=== PATIENT | female | born 1965 | race Caucasian/White ===

== ENCOUNTER 2020-07-25 17:36 | Observation (INO) | payer BC, MEDICARE ==
[~2020-07-25] VITALS: Ht 170.2 cm; Wt 66.7 kg
[~2020-07-25 17:36] MED LIST: DOXYCYCLINE HY100 MG PO
[2020-07-25 18:35] LABS: HEMOGLOBIN 17.1 gm/dl (12.3-15.3); RED BLOOD COUNT 5.52 M/UL (4.00-5.10); WHITE BLOOD COUNT 7.5 K/UL (4.5-11.0)
[2020-07-25 18:59] LABS: BUN/CREATININE RATIO 10 (0-10)
[2020-07-25] MEDS ORDERED: NITROGLYCERIN0.4 MG SL (23:06)
[2020-07-25] MEDS ORDERED: NORTRIPTYLINE H25 MG PO (23:07)
[2020-07-25] MEDS ORDERED: VENTOLIN HFA 66.7 GM INH (23:07)
[2020-07-25] MEDS ORDERED: HYDROCODON-ACE1 EAC6 PO (23:07)
[2020-07-25] MEDS ORDERED: LEVOTHYROXINE137 MCG PO (23:08)
[2020-07-25] MEDS ORDERED: CLOPIDOGREL75 MG PO (23:08)
[2020-07-25] MEDS ORDERED: DURAGESIC1 EAC3 TD (23:09)
[2020-07-25] MEDS ORDERED: ASPIRIN325 MG PO (23:10)
[2020-07-26 04:51] LABS: HEMOGLOBIN 16.1 gm/dl (12.3-15.3); RED BLOOD COUNT 5.29 M/UL (4.00-5.10); WHITE BLOOD COUNT 5.8 K/UL (4.5-11.0)
[2020-07-26 05:19] LABS: BUN/CREATININE RATIO 13 (0-10)
[2020-07-26] MEDS ORDERED: CATAPRES 0.1MG0.1 MG PO (23:08)
[2020-07-27 07:34] LABS: HEMOGLOBIN 16.1 gm/dl (12.3-15.3); RED BLOOD COUNT 5.28 M/UL (4.00-5.10)
[2020-07-27 07:50] LABS: BUN/CREATININE RATIO 12 (0-10)
[2020-07-27 07:59] LABS: WHITE BLOOD COUNT 9.2 K/UL (4.5-11.0)
[2020-07-27] MEDS ORDERED: LOPRESSOR 50 MG50 MG PO (09:33)
[2020-07-27] MEDS ORDERED: AMLODIPINE BESYL5 MG PO (09:33)
== END 2020-07-27 12:40 | disposition home or self-care (01) ==
LOC: ER1 17:36 → CDU 20:10 → M/S 20:10
PROVIDERS: Internal Medicine; ADMIT Internal Medicine
DX: I20.0 Unstable angina (principal); I16.0 Hypertensive urgency; E87.1 Hypo-osmolality and hyponatremia; I10 Essential (primary) hypertension; E03.9 Hypothyroidism, unspecified; F11.20 Opioid dependence, uncomplicated; R91.1 Solitary pulmonary nodule; I65.23 Occlusion and stenosis of bilateral carotid arteries; E78.5 Hyperlipidemia, unspecified; J45.909 Unspecified asthma, uncomplicated; F17.210 Nicotine dependence, cigarettes, uncomplicated; R00.2 Palpitations; Z88.8 Allergy status to other drugs, medicaments and biological substances; Z79.82 Long term (current) use of aspirin; Z79.899 Other long term (current) drug therapy; Z20.822 Contact with and (suspected) exposure to COVID-19
CPT/HCPCS: 36415; 71045; 75716; 80048; 80053; 80061; 82550; 82553; 83036; 83735; 83874; 84295; 84439; 84443; 84484; 85025; 85379; 93005; 96374; 96375; 99152; 99153; 99285; C1760; C1769; G0278; G0378; J0360; J1170; J1644; J2250; J3010; J7030; Q9963; Q9967; U0002